=== PATIENT | female | born 1990 | race African-American/Black ===

== ENCOUNTER 2021-08-04 05:26 | Day surgery (SDC) | payer OTHER ==
[2021-08-04] MEDS ORDERED: ACETAMINOPHEN INJECTION 100 ML IVPB ONE (07:35)
[2021-08-04] MEDS ORDERED: PHENAZOPYRIDINE HCL 100 MG TABLET (FP) ONE (07:36)
[2021-08-04] MEDS ORDERED: ACETAMINOPHEN 1000 MG/100 ML VIAL IVPB ONE (09:00)
[2021-08-04] MEDS ORDERED: GABAPENTIN 300 MG CAPSULE PO ONE (09:00)
[2021-08-04] MEDS ORDERED: PHENAZOPYRIDINE HCL 100 MG TABLET (FP) PO ONE (09:00)
[2021-08-04] MEDS ORDERED: BUPIVACAINE LIPOSOME/PF (EXPAREL) 266 MG/20 ML VIAL ONE (10:47)
[2021-08-04] MEDS ORDERED: BUPIVACAINE HCL/PF 0.5% (5MG/ML) 10 ML VIAL ONE (10:47)
[2021-08-04] MEDS ORDERED: MIDAZOLAM HCL 2 MG/2 ML SINGLE DOSE VIAL ONE ×3 (10:57→11:45)
[2021-08-04] MEDS ORDERED: ROCURONIUM BROMIDE 50 MG/5 ML SYRINGE ONE (12:06)
[2021-08-04] MEDS ORDERED: CLINDAMYCIN 900 MG PREMIX BAG IVPB ONE (12:25)
[2021-08-04] MEDS ORDERED: NEOSTIGMINE METHYLSULFATE 0.5 MG/ML - 10 ML MDV ONE (13:42)
[2021-08-04] MEDS ORDERED: BISACODYL 5 MG TABLET.DR (FP) PO PRN (14:18)
[2021-08-04] MEDS ORDERED: DOCUSATE SODIUM 100 MG CAPSULE (FP) PO PRN (14:18)
[2021-08-04] MEDS ORDERED: ONDANSETRON 4 MG/2 ML VIAL IVPUSH PRN (14:18)
[2021-08-04] MEDS ORDERED: SIMETHICONE 80 MG TAB.CHEW (FP) PO PRN (14:18)
[2021-08-04] MEDS ORDERED: LACTATED RINGERS SOLUTION 1,000 ML IV SCH ×2 (14:30→16:28)
[2021-08-04] MEDS ORDERED: HYDROmorphone *PCA* 10MG/50ML DISP.SYRIN ONE (14:30)
[2021-08-04] MEDS ORDERED: HYDROmorphone *PCA* 10MG/50ML DISP.SYRIN PCA SCH (14:30)
[2021-08-04 18:16] LABS: HEMATOCRIT 36.4 % (32.4-45.2); HEMOGLOBIN 11.9 GM/dL (10.7-15.3); MCH 30.4 pg (25.7-33.7); MCHC 32.8 g/dl (32.0-36.0); MEAN CELL VOLUME 92.8 fl (80-96); MEAN PLT VOLUME 8.5 fl (7.5-11.1); PLATELET COUNT 226 10^3/uL (134-434); RBC 3.92 M/mm3 (3.60-5.2); RDW 13.2 % (11.6-15.6); WHITE BLOOD COUNT 11.4 K/mm3 (4.0-10.0)
[2021-08-04 18:38] LABS: CALCIUM 8.6 mg/dL (8.5-10.1)
[2021-08-04 18:42] LABS: CREATININE 0.8 mg/dL (0.55-1.3)
[2021-08-04] MEDS: CLINDAMYCIN 900 MG PREMIX IVPB 900 MG/50 ML BAG IVPB SCH (19:20)
[2021-08-04] MEDS ORDERED: CLINDAMYCIN PHOSPHATE 600 MG/4 ML VIAL ONE (19:28)
[2021-08-04] MEDS ORDERED: ACETAMINOPHEN 325 MG TABLET (FP) PO SCH (20:00)
[2021-08-04] MEDS ORDERED: IBUPROFEN 800 MG/8 ML IJ IVPB PRN ×2 (20:00→22:00)
[2021-08-04 20:50] VITALS: BMI 46.1
[2021-08-04] MEDS: ACETAMINOPHEN 500 MG TABLET (FP) PO SCH (22:17)
[2021-08-05] MEDS: CLINDAMYCIN 900 MG PREMIX IVPB 900 MG/50 ML BAG IVPB SCH (03:16)
[2021-08-05] MEDS: ACETAMINOPHEN 500 MG TABLET (FP) PO SCH ×4 (03:16→22:59)
[2021-08-05 09:13] LABS: CHLORIDE 105 mmol/L (98-107); SODIUM 138 mmol/L (136-145)
[2021-08-05 09:15] LABS: HEMATOCRIT 30.6 % (32.4-45.2); HEMOGLOBIN 10.3 GM/dL (10.7-15.3); MCH 31.2 pg (25.7-33.7); MCHC 33.6 g/dl (32.0-36.0); MEAN CELL VOLUME 92.7 fl (80-96); MEAN PLT VOLUME 8.6 fl (7.5-11.1); PLATELET COUNT 226 10^3/uL (134-434); RDW 12.6 % (11.6-15.6); WHITE BLOOD COUNT 9.2 K/mm3 (4.0-10.0)
[2021-08-05] MEDS: ENOXAPARIN NA (PORCINE) 40 MG/0.4 ML DISP.SYRIN SQ SCH (09:34)
[2021-08-05 09:43] LABS: CALCIUM 8.6 mg/dL (8.5-10.1)
[2021-08-05 09:44] LABS: ANION GAP 7 MMOL/L (8-16); BLOOD UREA NITROGEN 11.3 mg/dL (7-18); CO2 25 mmol/L (21-32); GLUCOSE,RANDOM 105 mg/dL (74-106)
[2021-08-05 09:46] LABS: CREATININE 0.8 mg/dL (0.55-1.3)
[2021-08-05] MEDS ORDERED: oxyCODONE HCL 5 MG TABLET PO PRN ×2 (09:56→09:57)
[2021-08-05] MEDS: DOCUSATE SODIUM 100 MG CAPSULE (FP) PO SCH ×2 (10:12→21:06)
[2021-08-05] MEDS: IBUPROFEN 600 MG TABLET (FP) PO SCH ×2 (11:59→21:05)
[2021-08-06] MEDS: ACETAMINOPHEN 500 MG TABLET (FP) PO SCH (03:09)
[2021-08-06] MEDS: IBUPROFEN 600 MG TABLET (FP) PO SCH ×2 (05:37→12:00)
[2021-08-06 09:38] LABS: BASO % 0.4 % (0-2.0); EOS % 0.4 % (0-4.5); HEMATOCRIT 30.6 % (32.4-45.2); HEMOGLOBIN 10.1 GM/dL (10.7-15.3); LYMPH % 30.2 % (8-40); MCH 30.8 pg (25.7-33.7); MEAN CELL VOLUME 93.4 fl (80-96); MONO % 6.2 % (3.8-10.2); NEUT % 62.8 % (42.8-82.8); PLATELET COUNT 216 10^3/uL (134-434); RBC 3.28 M/mm3 (3.60-5.2); WHITE BLOOD COUNT 6.3 K/mm3 (4.0-10.0)
[2021-08-06] MEDS: ENOXAPARIN NA (PORCINE) 40 MG/0.4 ML DISP.SYRIN SQ SCH (10:26)
[2021-08-06] MEDS: DOCUSATE SODIUM 100 MG CAPSULE (FP) PO SCH (10:28)
[2021-08-06 14:22] VITALS: BP 106/48; PULSE 88; TEMP 98.6
== END 2021-08-06 18:51 | disposition home or self-care (01) ==
LOC: JASUSAT 05:26 → J2C 14:19 → J6S 20:01 → JASUSAT 08-06 18:51
PROVIDERS: ATTEND Obstetrics & Gynecology
PROC: 0UB90ZZ Excision of Uterus, Open Approach (ICD-10-PCS; principal; 2021-08-04 09:30)
DX: D25.9 Leiomyoma of uterus, unspecified (principal); E66.01 Morbid (severe) obesity due to excess calories
CPT/HCPCS: 36415; 80048; 81025; 84702; 85025; 85027; 86850; 86900; 86901; 88305-TC; 94760; J0131

== ENCOUNTER 2024-03-22 12:50 | Emergency (ER) | payer OTHER ==
[2024-03-22 13:15] VITALS: BP 93/62; PULSE 78; RESP 20; TEMP 98.6; BMI 42.3
[2024-03-22] MEDS ORDERED: ACETAMINOPHEN INJECTION 100 ML IVPB ONE (14:00)
[2024-03-22] MEDS: ACETAMINOPHEN 1000 MG/100 ML BAG IVPB ONE (14:03)
[2024-03-22] MEDS: SODIUM CHLORIDE 0.9% 500 ML INFUS.BAG IV ONE (14:03)
[2024-03-22 14:07] LABS: BASO % 0.5 % (0-2.0); EOS % 0.8 % (0-4.5); HEMATOCRIT 37.9 % (32.4-45.2); HEMOGLOBIN 12.7 GM/dL (10.7-15.3); LYMPH % 19.7 % (8-40); MCH 30.9 pg (25.7-33.7); MCHC 33.4 g/dl (32.0-36.0); MEAN CELL VOLUME 92.4 fl (80-96); MEAN PLT VOLUME 7.7 fl (7.5-11.1); MONO % 6.6 % (3.8-10.2); NEUT % 72.4 % (42.8-82.8); PLATELET COUNT 264 10^3/uL (134-434); RDW 13.4 % (11.6-15.6); WHITE BLOOD COUNT 5.8 K/mm3 (4.0-10.0)
[2024-03-22 14:08] LABS: HCG,QUALITATIVE URINE Positive; URINE APPEARANCE CLOUDY; URINE BILIRUBIN NEGATIVE (NEGATIVE); URINE COLOR YELLOW; URINE GLUCOSE (UA) NEGATIVE (NEGATIVE); URINE KETONE 1+ (NEGATIVE); URINE LEUK ESTERASE NEGATIVE (NEGATIVE); URINE NITRITE NEGATIVE (NEGATIVE); URINE PROTEIN NEGATIVE (NEGATIVE); URINE UROBILINOGEN 0.2 mg/dL (0.2-1.0)
[2024-03-22 14:25] LABS: POTASSIUM 4.2 mmol/L (3.5-5.1)
[2024-03-22 14:27] LABS: ALBUMIN 3.3 g/dl (3.4-5.0); BLOOD UREA NITROGEN 12.3 mg/dL (7-18); CALCIUM 8.4 mg/dL (8.5-10.1)
[2024-03-22 14:30] LABS: CREATININE 0.9 mg/dL (0.55-1.3)
[2024-03-22 14:32] LABS: BILIRUBIN,TOTAL 0.5 mg/dL (0.2-1); TOT PROT 7.1 g/dl (6.4-8.2)
== END 2024-03-22 17:07 | disposition home or self-care (01) ==
LOC: JERFT 12:50
PROC: 3E033NZ Introduction of Analgesics, Hypnotics, Sedatives into Peripheral Vein, Percutaneous Approach (ICD-10-PCS; principal; 2024-03-22)
DX: O26.899 Other specified pregnancy related conditions, unspecified trimester (principal); R10.31 Right lower quadrant pain; O21.9 Vomiting of pregnancy, unspecified; Z3A.00 Weeks of gestation of pregnancy not specified
CPT/HCPCS: 36415; 76817-TC; 80053; 81003; 84702; 84703; 85025; 86850; 86900; 86901; 87086; 99284-25; J0131

== ENCOUNTER 2024-06-06 19:01 | Observation (INO) | payer OTHER ==
[2024-06-06 19:12] VITALS: BMI 71.1
[2024-06-06] MEDS ORDERED: ACETAMINOPHEN 325 MG TABLET (FP) ONE (20:27)
[2024-06-06] MEDS: ACETAMINOPHEN 500 MG TABLET (FP) PO ONE (20:47)
[2024-06-06] MEDS ORDERED: SIMETHICONE 80 MG TAB.CHEW (FP) ONE (20:50)
[2024-06-06 21:09] LABS: POTASSIUM 4.5 mmol/L (3.5-5.1)
[2024-06-06 21:11] LABS: BLOOD UREA NITROGEN 9.3 mg/dL (7-18); CALCIUM 8.9 mg/dL (8.5-10.1)
[2024-06-06 21:14] LABS: CREATININE 0.7 mg/dL (0.55-1.3)
[2024-06-06 21:15] LABS: BILIRUBIN,TOTAL 0.4 mg/dL (0.2-1); TOT PROT 7.4 g/dl (6.4-8.2)
[2024-06-06] MEDS: SIMETHICONE 80 MG TAB.CHEW (FP) PO ONE (21:44)
[2024-06-06 21:55] LABS: BASO % 0.3 % (0-2.0); EOS % 0.5 % (0-4.5); HEMATOCRIT 37.4 % (32.4-45.2); HEMOGLOBIN 12.5 GM/dL (10.7-15.3); LYMPH % 11.6 % (8-40); MCH 31.4 pg (25.7-33.7); MCHC 33.4 g/dl (32.0-36.0); MEAN CELL VOLUME 94.1 fl (80-96); MEAN PLT VOLUME 7.9 fl (7.5-11.1); MONO % 5.9 % (3.8-10.2); NEUT % 81.7 % (42.8-82.8); PLATELET COUNT 226 10^3/uL (134-434); RBC 3.98 M/mm3 (3.60-5.2); RDW 13.1 % (11.6-15.6); WHITE BLOOD COUNT 10.6 K/mm3 (4.0-10.0)
[2024-06-06 22:17] LABS: POTASSIUM 4.1 mmol/L (3.5-5.1)
[2024-06-06 22:19] LABS: CALCIUM 8.4 mg/dL (8.5-10.1)
[2024-06-06 22:20] LABS: ALBUMIN 3.2 g/dl (3.4-5.0); BLOOD UREA NITROGEN 10.9 mg/dL (7-18)
[2024-06-06 22:23] LABS: CREATININE 0.8 mg/dL (0.55-1.3)
[2024-06-06 22:25] LABS: BILIRUBIN,TOTAL 0.3 mg/dL (0.2-1); TOT PROT 7.2 g/dl (6.4-8.2)
[2024-06-06 22:51] LABS: EPI CELLS >36 /uL (0-25.1); HYALINE CASTS 0 /uL (0-3.1); PH,URINE 6.5 (5.0-8.0); URINE APPEARANCE CLOUDY; URINE BACTERIA 2745 /uL (0-1359); URINE BILIRUBIN NEGATIVE (NEGATIVE); URINE COLOR YELLOW; URINE GLUCOSE (UA) NEGATIVE (NEGATIVE); URINE KETONE TRACE (NEGATIVE); URINE LEUK ESTERASE 1+ (NEGATIVE); URINE NITRITE NEGATIVE (NEGATIVE); URINE PROTEIN TRACE (NEGATIVE); URINE RBC 14 /uL (0-23.9); URINE WBC 79 /uL (0-25.8)
[2024-06-06 23:04] LABS: URINE CRYSTALS FEW CALCIUM OXALATES /hpf
[2024-06-06] MEDS ORDERED: morphine SULFATE 4 MG/ML VIAL ONE (23:29)
[2024-06-06] MEDS: morphine CARPU-JECT 4 MG/1 ML DISP.SYRIN IVPUSH ONE (23:47)
[2024-06-06] MEDS: diphenhydrAMINE HCL 25 MG CAPSULE (FP) PO ONE (23:48)
[2024-06-07] MEDS ORDERED: ACETAMINOPHEN INJECTION 100 ML ONE ×2 (00:18→06:36)
[2024-06-07] MEDS ORDERED: CEFTRIAXONE 1 GM/50 ML BAG ONE (00:18)
[2024-06-07] MEDS: CEFTRIAXONE 1 GM in DEXTROSE 5%-WATER - 100 ML IVPB ONE (00:32)
[2024-06-07] MEDS: ACETAMINOPHEN 1000 MG/100 ML BAG IVPB SCH (00:55)
[2024-06-07 06:13] VITALS: RESP 18
[2024-06-07] MEDS: LACTATED RINGERS SOLUTION 1,000 ML/1,000 ML INFUS.BAG IV SCH (06:25)
[2024-06-07] MEDS: metroNIDAZOLE 250 MG TABLET PO SCH (06:44)
[2024-06-07] MEDS: ACETAMINOPHEN 1000 MG/100 ML BAG IVPB PRN (06:45)
[2024-06-07] MEDS: SODIUM CHLORIDE 1,000 ML IV SCH (06:45)
[2024-06-07 08:13] LABS: HEMATOCRIT 36.2 % (32.4-45.2); HEMOGLOBIN 11.8 GM/dL (10.7-15.3); MCHC 32.6 g/dl (32.0-36.0); MEAN CELL VOLUME 94.8 fl (80-96); MEAN PLT VOLUME 8.5 fl (7.5-11.1); PLATELET COUNT 226 10^3/uL (134-434); RBC 3.81 M/mm3 (3.60-5.2); WHITE BLOOD COUNT 8.8 K/mm3 (4.0-10.0)
[2024-06-07 08:28] LABS: POTASSIUM 3.5 mmol/L (3.5-5.1)
[2024-06-07 08:33] LABS: ALBUMIN 2.9 g/dl (3.4-5.0); BLOOD UREA NITROGEN 9.5 mg/dL (7-18); CALCIUM 8.7 mg/dL (8.5-10.1); MAGNESIUM 1.9 mg/dL (1.8-2.4)
[2024-06-07 08:36] LABS: CREATININE 0.7 mg/dL (0.55-1.3); PHOSPHOROUS 3.4 mg/dL (2.5-4.9)
[2024-06-07 08:37] LABS: BILIRUBIN,TOTAL 0.4 mg/dL (0.2-1); TOT PROT 6.8 g/dl (6.4-8.2)
[2024-06-07] MEDS ORDERED: CEFTRIAXONE 1 GM in DEXTROSE 5%-WATER - 50 ML IVPB SCH (10:00)
[2024-06-07 10:57] LABS: URINE BARBITURATES NEGATIVE (NEGATIVE)
[2024-06-07 10:59] LABS: COCAINE, UR NEGATIVE (NEGATIVE); METHADONE, UR NEGATIVE (NEGATIVE); PHENCYCLIDINE,URINE NEGATIVE (NEGATIVE); URINE AMPHETAMINES NEGATIVE (NEGATIVE); URINE BENZODIAZEPINES NEGATIVE (NEGATIVE)
[2024-06-07 11:02] LABS: OPIATES, URI NEGATIVE (NEGATIVE)
[2024-06-07] MEDS: POLYETHYLENE GLYCOL (HEALTHYLAX) 3350 17 GM PACKET PO SCH (14:31)
[2024-06-07] MEDS: ERTAPENEM SODIUM 1 GM in SODIUM CHLORIDE 50 ML IVPB ONE (15:37)
[2024-06-07 22:33] VITALS: PULSE 67
[2024-06-07] MEDS: MAGNESIUM CITRATE 300 ML BOTTLE PO ONE (22:44)
[2024-06-08] MEDS: ACETAMINOPHEN 1000 MG/100 ML BAG IVPB PRN (07:04)
[2024-06-08 07:28] VITALS: BP 127/69; TEMP 98.4
[2024-06-08 08:58] LABS: BASO % 0.3 % (0-2.0); EOS % 0.5 % (0-4.5); HEMATOCRIT 34.3 % (32.4-45.2); HEMOGLOBIN 11.2 GM/dL (10.7-15.3); LYMPH % 16.4 % (8-40); MCH 30.9 pg (25.7-33.7); MCHC 32.7 g/dl (32.0-36.0); MEAN CELL VOLUME 94.3 fl (80-96); MEAN PLT VOLUME 8.5 fl (7.5-11.1); MONO % 7.8 % (3.8-10.2); PLATELET COUNT 210 10^3/uL (134-434); RBC 3.64 M/mm3 (3.60-5.2); RDW 12.9 % (11.6-15.6); WHITE BLOOD COUNT 6.9 K/mm3 (4.0-10.0)
[2024-06-08 09:12] LABS: POTASSIUM 3.8 mmol/L (3.5-5.1)
[2024-06-08 09:14] LABS: BLOOD UREA NITROGEN 10.5 mg/dL (7-18); CALCIUM 8.1 mg/dL (8.5-10.1)
[2024-06-08 09:18] LABS: CREATININE 0.6 mg/dL (0.55-1.3)
== END 2024-06-08 14:57 | disposition home or self-care (01) ==
LOC: JER 19:01 → JERBED 06-07 00:06 → UNDOADMOB 06-07 00:06 → OBSVTOIN 06-07 02:46 → INTOOBSV 06-07 02:46 → J7W 06-07 09:29 → JERBED 06-07 09:29 → J7W 06-08 08:35 → JERBED 06-08 08:35
PROVIDERS: ADMIT Internal Medicine; ATTEND Nurse Practitioner
PROC: 3E033NZ Introduction of Analgesics, Hypnotics, Sedatives into Peripheral Vein, Percutaneous Approach (ICD-10-PCS; principal; 2024-06-08)
PROC: 3E03329 Introduction of Other Anti-infective into Peripheral Vein, Percutaneous Approach (ICD-10-PCS; 2024-06-08)
PROC: 3E033GC Introduction of Other Therapeutic Substance into Peripheral Vein, Percutaneous Approach (ICD-10-PCS; 2024-06-08)
PROC: 3E0337Z Introduction of Electrolytic and Water Balance Substance into Peripheral Vein, Percutaneous Approach (ICD-10-PCS; 2024-06-08)
DX: R10.9 Unspecified abdominal pain (principal); Z3A.16 16 weeks gestation of pregnancy; K59.00 Constipation, unspecified; Z86.018 Personal history of other benign neoplasm; Z91.013 Allergy to seafood; Z88.5 Allergy status to narcotic agent; Z88.0 Allergy status to penicillin
CPT/HCPCS: 36415; 72195-TC; 74181-TC; 76815-TC; 80048; 80053; 80307; 81003; 83735; 84100; 84702; 85025; 85027; 86140; 87086; 96361; 96365; 96366; 96367; 96375; 96376; 99285-25; G0378; J0131

== ENCOUNTER 2024-10-11 14:50 | Inpatient (IN) | payer OTHER ==
[2024-10-11] MEDS: ELECTROLYTE-148 SOLN 1,000 ML IV SCH (15:45)
[2024-10-11] MEDS ORDERED: MAGNESIUM 4GM/H20 - 4 GM/100 ML IVPB IVPB ONE (15:49)
[2024-10-11] MEDS ORDERED: hydrALAZINE HCL 20 MG/ML VIAL ONE ×3 (15:49→17:49)
[2024-10-11] MEDS: MAGNESIUM 4GM/H20 - 4 GM/100 ML IVPB IVPB ONE (15:52)
[2024-10-11] MEDS ORDERED: hydrALAZINE HCL 20 MG/ML VIAL IVPUSH PRN (15:55)
[2024-10-11] MEDS ORDERED: LABETALOL HCL 5 MG/1 ML (100MG/20 ML VIAL) IVPUSH PRN (15:55)
[2024-10-11] MEDS: hydrALAZINE HCL 20 MG/ML VIAL IVPUSH ONE ×2 (15:57→17:49)
[2024-10-11] MEDS: ACETAMINOPHEN 1000 MG/100 ML BAG IVPB ONE ×2 (16:30→20:48)
[2024-10-11] MEDS: CITRIC ACID/SODIUM CITRATE 30 ML UNIT-DOSE CUP PO ONE (16:30)
[2024-10-11] MEDS ORDERED: ACETAMINOPHEN INJECTION 100 ML ONE ×2 (16:30→20:43)
[2024-10-11] MEDS: MAGNESIUM SULFATE 20GM/500ML - 20 GM/500 ML INFUS.BAG IVPB SCH ×2 (16:35→20:49)
[2024-10-11 17:15] LABS: BASO % 0.2 % (0-2.0); EOS % 0.1 % (0-4.5); HEMOGLOBIN 11.2 GM/dL (10.7-15.3); LYMPH % 13.2 % (8-40); MCH 28.6 pg (25.7-33.7); MCHC 32.1 g/dl (32.0-36.0); MEAN CELL VOLUME 88.9 fl (80-96); MEAN PLT VOLUME 9.4 fl (7.5-11.1); MONO % 4.9 % (3.8-10.2); NEUT % 81.6 % (42.8-82.8); PLATELET COUNT 173 10^3/uL (134-434); RBC 3.93 M/mm3 (3.60-5.2); RDW 14.4 % (11.6-15.6); RETICULOCYTES 3.52 % (0.5-1.5); WHITE BLOOD COUNT 8.9 K/mm3 (4.0-10.0)
[2024-10-11 17:20] LABS: INR 0.87 (0.83-1.09); PROTHROMBIN TIME (PATIENT) 9.5 SEC (9.7-13.0)
[2024-10-11 17:23] LABS: ACTIVATED PTT 27.1 SECONDS (25.2-36.5)
[2024-10-11] MEDS ORDERED: LABETALOL HCL 20 MG/4 ML VIAL ONE (17:30)
[2024-10-11 17:32] LABS: POTASSIUM 3.7 mmol/L (3.5-5.1)
[2024-10-11 17:33] LABS: CALCIUM 8.5 mg/dL (8.5-10.1)
[2024-10-11 17:34] LABS: BLOOD UREA NITROGEN 7.9 mg/dL (7-18); MAGNESIUM 3.1 mg/dL (1.8-2.4)
[2024-10-11 17:37] LABS: CREATININE 0.7 mg/dL (0.55-1.3); URIC ACID 3.5 mg/dL (2.6-7.2)
[2024-10-11] MEDS ORDERED: morphine SULFATE/PF 1 MG/2 ML (2cc Syringe - QUVA) ONE (17:47)
[2024-10-11] MEDS ORDERED: FENTANYL CITRATE/PF 50 MCG/ML VIAL ONE (17:47)
[2024-10-11] MEDS ORDERED: LIGASURE IMPACT TP ONE (18:09)
[2024-10-11 18:28] LABS: HIV INTERPRETATION NEGATIVE (NEGATIVE)
[2024-10-11 18:42] VITALS: BMI 44.2
[2024-10-11] MEDS ORDERED: AZITHROMYCIN IVPB 500 MG/250 ML BAG IVPB ONE (18:50)
[2024-10-11] MEDS ORDERED: ONDANSETRON 4 MG/2 ML VIAL ONE ×2 (18:56)
[2024-10-11] MEDS ORDERED: TRANEXAMIC ACID 1000 MG/10 ML VIAL ONE (18:56)
[2024-10-11] MEDS ORDERED: ACETAMINOPHEN 325 MG TABLET (FP) PO PRN (20:24)
[2024-10-11] MEDS ORDERED: ONDANSETRON 4 MG/2 ML VIAL IVPUSH PRN (20:24)
[2024-10-11 20:29] LABS: CORD HCO3 21.9 mmHg (20-29); CORD PCO2 55.3 mmHg (30-78); CORD pH 7.216 (7.14-7.44)
[2024-10-11 20:32] LABS: CORD BASE EXCESS -7.7 mmol/L (0-2); CORD HCO3 21.7 mmHg (20-29); CORD PCO2 60.3 mmHg (30-78); CORD pH 7.174 (7.14-7.44)
[2024-10-11] MEDS: LABETALOL HCL 200 MG TABLET (FP) PO ONE (20:45)
[2024-10-11] MEDS ORDERED: IBUPROFEN 600 MG TABLET (FP) PO ONE (21:54)
[2024-10-11] MEDS ORDERED: LABETALOL HCL 200 MG TABLET (FP) ONE (21:54)
[2024-10-11] MEDS: IBUPROFEN 600 MG TABLET (FP) PO PRN (21:59)
[2024-10-11] MEDS: LABETALOL HCL 200 MG TABLET (FP) PO SCH (22:03)
[2024-10-11] MEDS ORDERED: METHYLERGONOVINE MALEATE 0.2 MG/1 ML AMP IM PRN (22:23)
[2024-10-11] MEDS ORDERED: BENZOCAINE 28 GM HEMORRHOIDAL OINTMENT TP PRN (22:23)
[2024-10-11] MEDS ORDERED: BENZOCAINE 20% 57 GM BOTTLE TP PRN (22:23)
[2024-10-11] MEDS ORDERED: ACETAMINOPHEN 1000 MG/100 ML BAG IVPB PRN (22:25)
[2024-10-11] MEDS ORDERED: WITCH HAZEL 50% (TUCKS) 40 PAD/JAR PAD TP PRN (22:30)
[2024-10-11] MEDS ORDERED: OXYTOCIN 20 UNITS in 0.9% NS 20 UNIT/1,000 ML INFUS.BAG IV ONE (23:50)
[2024-10-11] MEDS: OXYTOCIN 20 UNITS in 0.9% NS 20 UNIT/1,000 ML INFUS.BAG IV SCH (23:58)
[2024-10-12] MEDS ORDERED: LABETALOL HCL 200 MG TABLET (FP) ONE ×3 (06:03→15:30)
[2024-10-12] MEDS ORDERED: MAGNESIUM SULFATE 20GM/500ML - 20 GM/500 ML INFUS.BAG ONE (07:43)
[2024-10-12] MEDS: hydrALAZINE HCL 20 MG/ML VIAL IVPUSH ONE ×2 (08:29→08:32)
[2024-10-12] MEDS: ELECTROLYTE-148 SOLN 500 ML IV ONE (08:29)
[2024-10-12 08:32] LABS: BASO % 0.2 % (0-2.0); HEMATOCRIT 31.6 % (32.4-45.2); LYMPH % 11.4 % (8-40); MCH 28.4 pg (25.7-33.7); MCHC 31.6 g/dl (32.0-36.0); MEAN CELL VOLUME 90.1 fl (80-96); MEAN PLT VOLUME 9.7 fl (7.5-11.1); MONO % 6.1 % (3.8-10.2); NEUT % 82.3 % (42.8-82.8); PLATELET COUNT 168 10^3/uL (134-434); RDW 14.2 % (11.6-15.6); WHITE BLOOD COUNT 12.2 K/mm3 (4.0-10.0)
[2024-10-12] MEDS ORDERED: NIFEdipine E.R. 30 MG TABLET PO ONE (09:24)
[2024-10-12] MEDS ORDERED: FERROUS SO4 325 MG TABLET (FP) ONE (09:24)
[2024-10-12] MEDS ORDERED: PRENATAL VITAMINS W/ FOLIC ACID TABLET (FP) PO ONE (09:24)
[2024-10-12] MEDS: FERROUS SO4 325 MG TABLET (FP) PO SCH (09:27)
[2024-10-12] MEDS: PRENATAL VITAMINS W/ FOLIC ACID TABLET (FP) PO SCH (09:27)
[2024-10-12] MEDS: NIFEdipine E.R. 30 MG TABLET PO ONE (09:30)
[2024-10-12] MEDS ORDERED: oxyCODONE HCL 5 MG TABLET PO PRN (10:23)
[2024-10-12] MEDS: LABETALOL HCL 200 MG TABLET (FP) PO ONE (12:45)
[2024-10-12] MEDS ORDERED: IBUPROFEN 600 MG TABLET (FP) PO ONE (15:47)
[2024-10-12] MEDS ORDERED: BISACODYL 10 MG SUPP.RECT RC PRN (22:23)
[2024-10-13] MEDS: SIMETHICONE 80 MG TAB.CHEW (FP) PO PRN (02:40)
[2024-10-14 06:58] LABS: BASO % 0.4 % (0-2.0); EOS % 0.8 % (0-4.5); HEMATOCRIT 26.6 % (32.4-45.2); HEMOGLOBIN 8.5 GM/dL (10.7-15.3); LYMPH % 18.8 % (8-40); MCH 28.8 pg (25.7-33.7); MCHC 31.8 g/dl (32.0-36.0); MEAN CELL VOLUME 90.6 fl (80-96); MEAN PLT VOLUME 9.2 fl (7.5-11.1); MONO % 7.3 % (3.8-10.2); NEUT % 72.7 % (42.8-82.8); PLATELET COUNT 186 10^3/uL (134-434); RBC 2.93 M/mm3 (3.60-5.2); RDW 14.8 % (11.6-15.6); WHITE BLOOD COUNT 8.2 K/mm3 (4.0-10.0)
[2024-10-14] MEDS: NIFEdipine E.R. 30 MG TABLET PO SCH (15:51)
[2024-10-15] MEDS ORDERED: NIFEdipine E.R. 30 MG TABLET PO ONE (13:06)
[2024-10-16] MEDS: NIFEdipine E.R 60 MG TABLET PO SCH (09:51)
[2024-10-17 05:45] VITALS: RESP 18
[2024-10-17 11:03] VITALS: TEMP 98.2
[2024-10-17 15:58] VITALS: BP 137/88; PULSE 98
== END 2024-10-17 15:30 | disposition home or self-care (01) | DRG 788 ==
LOC: JER 14:50 → JLDR 15:30 → J3W 10-12 16:14
PROVIDERS: ADMIT Obstetrics & Gynecology; ATTEND Obstetrics & Gynecology
PROC: 10D00Z1 Extraction of Products of Conception, Low, Open Approach (ICD-10-PCS; principal; 2024-10-11)
DX: O14.14 Severe pre-eclampsia complicating childbirth (principal); Z3A.34 34 weeks gestation of pregnancy; Z37.0 Single live birth
CPT/HCPCS: 36415; 36600; 80048; 82570; 82803; 82977; 83010; 83735; 84156; 84450; 84460; 84550; 85025; 85045; 85610; 85730; 86780; 86803; 86850; 86900; 86901; 87389; 88305-TC; 88307-TC; 99285-25; J0131